=== PATIENT | female | born 1985 ===

== ENCOUNTER 2018-03-05 18:01 | Emergency (ER) | payer OTHER ==
[2018-03-05 18:17] VITALS: BP 108/78
[2018-03-05] MEDS ORDERED: Sodium Chloride 0.9% 10 ML Syringe FLUSH PRN (18:40)
[2018-03-05] MEDS ORDERED: Sodium Chloride 0.9% 1,000 ML IV ONE (18:41)
--- NOTE | 2018-03-05 18:45 | EDM.PDOC ---
ED HPI GENERAL MEDICAL PROBLEM - General Chief Complaint: Gastrointestinal Problem Stated Complaint: BLOOD IN STOOL Time Seen by Provider: 03/05/18 18:23 Source of Information: Reports: Patient History Limitations: Reports: No Limitations - History of Present Illness INITIAL COMMENTS - FREE TEXT/NARRATIVE: Patient is a 33-year-old female who presents to the ED complaining of generalized abdominal cramping, bloating, increased flatulence, with bloody stools. Patient states this all started 2 weeks ago. Initially started with very loose diarrhea stools with blood present. She was evaluated in the clinic and they presumably thought this was related to a viral infection. She was sent home with no therapy. For the past 2 days patient has noticed her stool become more firm after taking probiotics. In addition she developed severe pain to her mid low back that is relieved with having a bowel movement. She has had increased flatulence. She still has about 6 or more stools daily described as low volume. She does complain about tenismus. Of note patient did eat Cindy lettuce prior to onset of symptoms. Her has eaten similar food with no symptoms as such. . Patient does work on a [employer] and there is a possibility of contaminated water. She has no history of ulcerative colitis, Crohn's disease, and/or hemorrhoids. Her last menstrual cycle was the 23 of February described as normal. They are attempting to get and have been on infertility drugs. Patient has no significant past medical history. She is currently on no meds. Surgical history gallbladder and uterus surgery. She does not smoke consume alcohol or use recreational drugs. Patient has been sweating at night. She's had no nausea or vomiting, chest pain, sob, dysuria, lightheadedness, dizziness, rash, or any additional complaints. There's been no recent out of country travel. She denies any recent antibiotic use. Abdominal Pain Score (Numeric/FACES): 4 - Related Data Allergies Allergy/AdvReac Type Severity Reaction Status Date / Time No Known Allergies Allergy Verified 07/20/15 15:26 Home Meds: Home Meds Ciprofloxacin HCl [Cipro] 500 mg PO Q12HR #14 tablet 03/05/18 [Rx] metroNIDAZOLE [Flagyl] 500 mg PO Q8H #20 tab 03/05/18 [Rx] Past Medical History [employer] History: Reports: Other (See Below) Other OB/BYN History: uterus surgery and infertility - Past Surgical History GI Surgical History: Reports: Cholecystectomy Social & Family History - Tobacco Use Smoking Status *Q: Never Smoker Month/Year Tobacco Last Used: 2 weeks - Caffeine Use Caffeine Use: Reports: Coffee, Tea - Recreational Drug Use Recreational Drug Use: No ED ROS GENERAL - Review of Systems Review Of Systems: ROS reveals no pertinent complaints other than HPI. ED EXAM, GI/ABD - Physical Exam Exam: See Below Exam Limited By: No Limitations General Appearance: Alert, No Apparent Distress Ears: Hearing Grossly Normal Nose: Normal Inspection Throat/Mouth: Normal Voice, No Airway Compromise Neck: Normal Inspection, Supple Respiratory/Chest: No Respiratory Distress, Lungs Clear, Normal Breath Sounds Cardiovascular: Normal Peripheral Pulses, Regular Rate, Rhythm, No Murmur GI/Abdominal Exam: Soft, Tender (Along the left lower quadrant and suprapubic region.), Abnormal Bowel Sounds (Hyperactive). No: Distended, Guarding, Rigid, Rebound (Female) Exam: Deferred (No complaints) Rectal (Female) Exam: Deferred Neurological: Alert, Oriented, CN II-XII Intact, Normal Cognition, No Motor/ Sensory Deficits Psychiatric: Normal Affect, Normal Mood Skin Exam: Warm, Dry, Intact, Normal Color Course - Vital Signs Last Recorded V/S: Last Vital Signs Temp 99.9 F 03/05/18 18:16 Pulse 91 03/05/18 18:16 Resp 20 03/05/18 18:16 BP 108/78 03/05/18 18:16 Pulse Ox 96 03/05/18 18:16 - Orders/Labs/Meds Orders: Active Orders 24 hr Category Date Time Status Peripheral IV Care [RC] . DIRECTED Care 03/05/18 18:40 Active CULTURE STOOL + SHIGATOX [RM] Stat Lab 03/05/18 18:40 Ordered Peripheral IV Insertion Adult [OM.PC] Routine Oth 03/05/18 18:40 Ordered Labs: Laboratory Tests 03/05/18 03/05/18 03/05/18 Range/Units 18:48 18:50 18:50 WBC 10.84 H (3.98-10.04) K/mm3 RBC 4.56 (3.98-5.22) M/mm3 Hgb 14.2 (11.2-15.7) gm/L Hct 40.7 (34.1-44.9) % MCV 89.3 (79.4-94.8) fl MCH 31.1 (25.6-32.2) pg MCHC 34.9 (32.2-35.5) g/dl RDW Std Deviation 39.1 (36.4-46.3) fL Plt Count 331 (182-369) K/mm3 MPV 10.0 (9.4-12.3) fl Neutrophils % (Manual) 72 H (40-60) % Band Neutrophils % 0 (0-10) % Lymphocytes % (Manual) 18 L (20-40) % Atypical Lymphs % 0 % Monocytes % (Manual) 9 (2-10) % Eosinophils % (Manual) 0 L (0.7-5.8) % Basophils % (Manual) 1 (0.1-1.2) Toxic Granulation Few Platelet Estimate Adequate Plt Morphology Comment Normal RBC Morph Comment Normal Sodium 137 (136-145) mEq/L Potassium 3.3 L (3.5-5.1) mEq/L Chloride 100 (98-107) mEq/L Carbon Dioxide 27 (21-32) mEq/L Anion Gap 13.3 (5-15) BUN 12 (7-18) mg/dL Creatinine 0.8 (0.55-1.02) mg/dL Est Cr Clr Drug Dosing 83.51 mL/min Estimated GFR (MDRD) > 60 (>60) mL/min BUN/Creatinine Ratio 15.0 (14-18) Glucose 96 (74-106) mg/dL Calcium 9.2 (8.5-10.1) mg/dL Total Bilirubin 0.7 (0.2-1.0) mg/dL AST 30 (15-37) U/L ALT 69 H (14-59) U/L Alkaline Phosphatase 60 (46-116) U/L C-Reactive Protein 0.3 (<1.0) mg/dL Total Protein 8.0 (6.4-8.2) g/dl Albumin 4.2 (3.4-5.0) g/dl Globulin 3.8 gm/dL Albumin/Globulin Ratio 1.1 (1-2) Lipase 137 (73-393) U/L HCG, Qual (NEGATIVE) Urine Color Yellow (Yellow) Urine Appearance Clear (Clear) Urine pH 5.5 (5.0-8.0) Ur Specific Nice > or = 1.030 (1.005-1.030) Urine Protein Negative (Negative) Urine Glucose (UA) Negative (Negative) Urine Ketones 1+ H (Negative) Urine Occult Blood Negative (Negative) Urine Nitrite Negative (Negative) Urine Bilirubin Negative (Negative) Urine Urobilinogen 0.2 (0.2-1.0) Ur Leukocyte Esterase Negative (Negative) Urine RBC 0-5 (0-5) /hpf Urine WBC Not seen (0-5) /hpf Ur Epithelial Cells 30-40 H (0-5) /hpf Urine Bacteria Rare (FEW) /hpf Urine Mucus Few (FEW) /hpf 03/05/18 Range/Units 18:50 WBC (3.98-10.04) K/mm3 RBC (3.98-5.22) M/mm3 Hgb (11.2-15.7) gm/L Hct (34.1-44.9) % MCV (79.4-94.8) fl MCH (25.6-32.2) pg MCHC (32.2-35.5) g/dl RDW Std Deviation (36.4-46.3) fL Plt Count (182-369) K/mm3 MPV (9.4-12.3) fl Neutrophils % (Manual) (40-60) % Band Neutrophils % (0-10) % Lymphocytes % (Manual) (20-40) % Atypical Lymphs % % Monocytes % (Manual) (2-10) % Eosinophils % (Manual) (0.7-5.8) % Basophils % (Manual) (0.1-1.2) Toxic Granulation Platelet Estimate Plt Morphology Comment RBC Morph Comment Sodium (136-145) mEq/L Potassium (3.5-5.1) mEq/L Chloride (98-107) mEq/L Carbon Dioxide (21-32) mEq/L Anion Gap (5-15) BUN (7-18) mg/dL Creatinine (0.55-1.02) mg/dL Est Cr Clr Drug Dosing mL/min Estimated GFR (MDRD) (>60) mL/min BUN/Creatinine Ratio (14-18) Glucose (74-106) mg/dL Calcium (8.5-10.1) mg/dL Total Bilirubin (0.2-1.0) mg/dL AST (15-37) U/L ALT (14-59) U/L Alkaline Phosphatase (46-116) U/L C-Reactive Protein (<1.0) mg/dL Total Protein (6.4-8.2) g/dl Albumin (3.4-5.0) g/dl Globulin gm/dL Albumin/Globulin Ratio (1-2) Lipase (73-393) U/L HCG, Qual Negative (NEGATIVE) Urine Color (Yellow) Urine Appearance (Clear) Urine pH (5.0-8.0) Ur Specific Nice (1.005-1.030) Urine Protein (Negative) Urine Glucose (UA) (Negative) Urine Ketones (Negative) Urine Occult Blood (Negative) Urine Nitrite (Negative) Urine Bilirubin (Negative) Urine Urobilinogen (0.2-1.0) Ur Leukocyte Esterase (Negative) Urine RBC (0-5) /hpf Urine WBC (0-5) /hpf Ur Epithelial Cells (0-5) /hpf Urine Bacteria (FEW) /hpf Urine Mucus (FEW) /hpf Meds: Medications Discontinued Medications Generic Name Dose Route Start Last Admin Trade Name Freq PRN Reason Stop Dose Admin Dicyclomine HCl 20 mg 03/05/18 18:56 03/05/18 19:07 Bentyl PO 03/05/18 18:57 20 mg ONETIME ONE Administration Sodium Chloride 1,000 mls @ 250 mls/hr 03/05/18 18:41 03/05/18 18:54 Normal Saline IV 03/05/18 22:40 250 mls/hr ASDIRECTED ONE Administration Metronidazole 500 mg 03/05/18 20:13 03/05/18 20:22 Flagyl PO 03/05/18 20:14 500 mg ONETIME ONE Administration Sodium Chloride 10 ml 03/05/18 18:40 03/05/18 18:54 Saline Flush FLUSH 10 ml ASDIRECTED PRN Administration Keep Vein Open - Re-Assessments/Exams Free Text/Narrative Re-Assessment/Exam: IV established with normal saline 250 mL per hour. Initial labs and studies will include CBC, chem 14, CRP, lipase, UA, stool wbc's , and stool culture. Patient denies being . Serum hCG will be obtained as well. Patient is on her menstrual cycle but states they're trying to get . I have ordered bentyl 20mg PO. 03/05/18 19:32 Stool WBC's moderate. Labs reviewed: White blood cell count 10.84, hemoglobin 14.2, with accounts 3031 , neutrophil percentage is 72 with no bands. Sodium 137, potassium 3.3, crit 0.8 , AG 13.3. Lipase 137. CRP 0.3. HCG negative. UA ketones 1+, urine epithelial cells 30-40. Suspect this is most likely related to food borne illness with eating the Cindy lettuce prior to onset of bloody diarrhea thereafter. Most of her pain is associated to the left lower quadrant concerning for diverticulitis. Although her labs do not indicate that. I have discussed this with the patient. I have elected to treat with a 7 day course of Cipro and Flagyl. Patient was instructed to continue taking the probiotic. Follow-up with PCP at the conclusion of therapy to ensure resolution. Return to the ED if she develops any new or worsening symptoms. The patient remained hemodynamically stable while under my care in the E.D. I discussed the concerning symptoms for which to return to the E.D. with the patient. The patient verbalized understanding. All questions were answered. Departure - Departure Time of Disposition: 20:05 Disposition: Home, Self-Care 01 Condition: Good Clinical Impression: Intestinal infection due to bacteria causing bloody diarrhea, Hypokalemia, gastrointestinal losses, Elevated alanine aminotransferase (ALT) level, Abdominal pain - Discharge Information Prescriptions: Ciprofloxacin HCl [Cipro] 500 mg PO Q12HR #14 tablet metroNIDAZOLE [Flagyl] 500 mg PO Q8H #20 tab Instructions: Preventing Foodborne Illness Referrals: PCP,Not In Area [Primary Care Provider] - Forms: ED Department Discharge Additional Instructions: Suspect this is related to a food borne illness after eating the cindy lettuce. With that said most of your pain was isolated to the left lower quadrant suspicious for diverticulitis. Thus will treat you with flagyl and cipro. This will be a 7 day course. Requiring close followup with your PCP at conclusion of therapy. Continue taking the probiotic and tylenol for pain. Return to the E.D. if you develop any new or worsening symptoms as discussed. Stool culture has been obtained. You will be notified if change in antibiotic is required. - My Orders Last 24 Hours: My Active Orders 03/05/18 18:40 Peripheral IV Care [RC] . DIRECTED CULTURE STOOL + SHIGATOX [RM] Stat Peripheral IV Insertion Adult [OM.PC] Routine - Assessment/Plan Last 24 Hours: My Active Orders 03/05/18 18:40 Peripheral IV Care [RC] . DIRECTED CULTURE STOOL + SHIGATOX [RM] Stat Peripheral IV Insertion Adult [OM.PC] Routine
[2018-03-05] MEDS ORDERED: Dicyclomine 10 MG Cap PO ONE (18:56)
[2018-03-05] MEDS ORDERED: metroNIDAZOLE 500 MG Tab PO ONE (20:13)
== END 2018-03-05 20:24 | disposition home or self-care (01) ==
LOC: JD.ED 18:01
DX: A04.9 Bacterial intestinal infection, unspecified (principal); E87.6 Hypokalemia; R79.89 Other specified abnormal findings of blood chemistry
CPT/HCPCS: 36415; 80053; 81001; 83690; 84703; 85025; 86140; 87046; 87427; 89055; 96360; 99284; A9270; J7040; J7050